=== PATIENT | female | born 1970 | race Caucasian/White ===

== ENCOUNTER 2017-06-10 09:00 | Outpatient (CLI) | payer MEDICAID | END 2017-06-10 23:59 | disposition home or self-care (01) | LOC: D.MAMMO 09:00 | DX: Z12.31 Encounter for screening mammogram for malignant neoplasm of breast (principal) ==

== ENCOUNTER 2018-03-24 16:35 | Emergency (ER) | payer MEDICAID ==
[~2018-03-24] VITALS: Ht 175.3 cm; Wt 72.7 kg
[2018-03-24 17:13] VITALS: BP 135/92; Ht 175.3 cm; Wt 72.7 kg
[2018-03-24] MEDS ORDERED: KLONOPIN1 MG PO (17:15)
[2018-03-24] MEDS ORDERED: TOPAMAX50 MG PO (17:18)
[2018-03-24] MEDS ORDERED: BACLOFEN10 MG PO (17:19)
[2018-03-24 22:31] LABS: BASOPHILS 0.5 % (0-2); EOSINOPHILS 2.2 % (0-7); HEMATOCRIT 37.1 % (36.0-48.0); HEMOGLOBIN 12.8 g/dL (12-16); IMMATURE GRANULOCYTES 0.1 % (0-5); LYMPHOCYTES 42.3 % (15-50); MCH 30.4 pg (26.0-34.0); MCHC 34.5 g/dL (31.0-37.0); MCV 88.1 fL (80.0-100.0); MEAN PLATELET VOLUME 10.3 fL (7.4-10.4); MONOCYTES 7.1 % (2-11); NEUTROPHILS 47.8 % (40-80); PLATELET COUNT 337 10x3/uL (130-400); RBC 4.21 10x6/uL (4.00-5.40); RDW 13.6 % (11.5-14.5); WBC 7.4 10x3/uL (4.8-10.8)
[2018-03-24 22:45] LABS: ALBUMIN 4.2 g/dL (3.4-5.0); ANION GAP 16.3 mmol/L (8-16); BILIRUBIN - TOTAL 0.25 mg/dL (0.2-1.3); CALCIUM 8.7 mg/dL (8.5-10.1); CARBON DIOXIDE 21.4 mmol/L (21.0-32.0); POTASSIUM - SERUM 4.7 mmol/L (3.5-5.1); PROTEIN - SERUM 7.4 g/dL (6.4-8.2)
== END 2018-03-24 23:20 | disposition home or self-care (01) ==
LOC: D.ER 16:35
PROVIDERS: Emergency Medicine
DX: R25.1 Tremor, unspecified (principal); F17.200 Nicotine dependence, unspecified, uncomplicated

== ENCOUNTER 2020-09-22 07:04 | Day surgery (SDC) | payer OTHER ==
[~2020-09-22] VITALS: Ht 175.3 cm; Wt 90.9 kg
--- NOTE | ~2020-09-22 | OP ---
PATIENT NAME: CHASTITY HARPER MEDICAL RECORD: [id number] :72 LOCATION:[facility] ADMISSION DATE: SURGEON: SEBASTIAN CUMMINGS MD DATE OF OPERATION: 09/22/2020 PREOPERATIVE DIAGNOSIS: Right-sided chronic sinusitis. POSTOPERATIVE DIAGNOSIS: Right-sided chronic sinusitis. PROCEDURES: Right middle meatal antrostomy, right ethmoidectomy, right frontal sinusotomy. SURGEON: Sebastian Cummings MD ANESTHESIA: General orotracheal. BLOOD LOSS: Less than 5 mL. SPECIMENS: Cultures from the right maxillary sinus and tissue, inflamed polypoid tissue from the right middle meatus for path. PACKING: None. COMPLICATIONS: None. DISPOSITION: Recovery, stable. DESCRIPTION OF PROCEDURE: She was brought to the operating room and placed in supine position, sedated and intubated by anesthesia. The table was turned 90 degrees. Head drape was applied. She was positioned for sinus surgery. Using a headlight and a nasal speculum, the floor of the nose, inferior turbinate, lateral nasal wall and middle turbinate on the right side were injected with 1 mL of 1% lidocaine with 1:100,000 epinephrine with a 1-1/2 inch 27-gauge needle. Then, three Afrin pledgets were placed in the right side superiorly, middle meatus and along the inferior turbinate and two were placed on the left side. She was positioned, prepped and draped in the usual fashion for sinus surgery. Then, all Afrin pledgets were removed from both sides of the nose. Left side was examined using 0-degree telescope. Inferior turbinate was normal. Middle meatus was normal. Nasal vaults was normal and the nasopharynx was normal, a little bit of septal deviation. Right side was then examined. Inferior turbinate was normal, slightly inflamed. There was purulence bubbling out of the entire middle meatus. The nasal vault looked normal. The nasopharynx was normal. No masses or polyps. The inferior turbinate was outfractured slightly for better visualization. Copious purulence was expressed from that middle meatus. The middle turbinate was medialized with the [place]. The uncinate and some inflammatory polypoid tissue and the middle turbinate were injected with another 0.5 mL of 1% lidocaine with 1:100,000 epinephrine. The curved olive tip suction was placed in the maxillary sinus with a Luki trap evacuated mostly purulence, a little bit of blood from the maxillary sinus. This was sent for cultures. A small pediatric forceps was used to remove several pieces of this inflammatory polypoid tissue from the middle meatus and a microdebrider was inserted and was used to take down all this polypoid tissue, exposing the maxillary ostia better and entering the inferior medial ethmoid bulla and taken down ethmoid cavities from anterior to posterior and evacuating the purulence there until I got back to clean ethmoid sinus. Really not much bleeding there OPERATIVE REPORT [id number] CHASTITY HARPER than a long thin curved olive tip suction was inserted up into the frontal duct really easily. Again, evacuated some purulence and this was repeatedly irrigated with a 60 mL syringe with saline rinsing it out that sinus. That was then suctioned out and then maxillary sinus was done the same way and the microdebrider was used to clean up the edges of that middle meatus. Had a nice smooth round opening into that maxillary sinus, large curved olive-tipped suction was used to evacuate it after being irrigated repeatedly. The ethmoids were cleaned. Afrin pledget was placed in the ethmoid cavity. I waited a few minutes for any bleeding to stop and remove that. I examined the nasal cavity and nasopharynx, the ethmoid cavity and that maxillary ostia. Everything was really clean, put some mupirocin ointment in there and suctioned the nasopharynx, made sure the pharynx was clear and eyes were examined and normal. She was awakened, extubated, and transported to recovery in good condition. No complications. TRANSINT:[id number] Voice Confirmation ID: [id number] DOCUMENT ID: [id number] SEBASTIAN CUMMINGS MD CC: [id number] DICTATION DATE: 09/22/20 1039 ETL PROGRAMMER: 09/22/20 1347 [facility] [place] 09/22/20 [facility] [address] [place] [id number]
[~2020-09-22 07:04] MED LIST: BACLOFEN10 MG PO; ERGOCALCIF50000 UNIT PO; KLONOPIN1 MG PO; NORVASC5 MG PO; REMERON15 MG PO; TOPAMAX50 MG PO
[2020-09-22 07:42] LABS: CALC OSMOLALITY 272 mosm/kg (275-300); CALCIUM 8.5 mg/dL (8.5-10.1); CARBON DIOXIDE 24.7 mmol/L (21.0-32.0); CHLORIDE - SERUM 105 mmol/L (98-107); CREATININE - SERUM 0.8 mg/dL (0.6-1.3); GLUCOSE 100 mg/dL (74-106); POTASSIUM - SERUM 3.7 mmol/L (3.5-5.1); SODIUM 136 mmol/L (136-145); UREA NITROGEN 16 mg/dL (7-18); eGFR NON AFRICAN AMERICAN 81 mL/min (90-120)
[2020-09-22 07:49] LABS: BASOPHILS 0.2 % (0-2); EOSINOPHILS 1.2 % (0-7); HEMATOCRIT 37.9 % (36.0-48.0); HEMOGLOBIN 12.8 g/dL (12-16); IMMATURE GRANULOCYTES 0.2 % (0-5); LYMPHOCYTES 18.1 % (15-50); MCH 28.8 pg (26.0-34.0); MCHC 33.8 g/dL (31.0-37.0); MCV 85.2 fL (80.0-100.0); MEAN PLATELET VOLUME 10.1 fL (7.4-10.4); MONOCYTES 7.4 % (2-11); NEUTROPHIL ABS# 7.64 10x3/uL (1.56-6.13); NEUTROPHILS 72.9 % (40-80); PLATELET COUNT 373 10x3/uL (130-400); RBC 4.45 10x6/uL (4.00-5.40); WBC 10.5 10x3/uL (4.8-10.8)
[2020-09-22 08:25] VITALS: BP 146/97; Ht 175.3 cm; Wt 90.9 kg
--- NOTE | 2020-09-22 09:44 | HP ---
PATIENT: CHASTITY HARPER MEDICAL RECORD: [id number] ACCOUNT: [id number] LOCATION:[facility] : 72 ADMISSION DATE: 09/22/20 PCP: FADIA COSTA DO HISTORY AND PHYSICAL EXAMINATION HISTORY OF PRESENT ILLNESS: Chastity is 50. She has been having severe right-sided sinusitis symptoms for about 6 months, been treated repeatedly. She has been admitted for sinus surgery. PAST MEDICAL HISTORY: Includes hypertension, melanoma. PAST SURGICAL HISTORY: Includes appendectomy, hysterectomy, bilateral rotator cuff surgery. SOCIAL HISTORY: She is a smoker. CURRENT MEDICATIONS: Include Norvasc, Requip, baclofen. ALLERGIES: No known drug allergies. PHYSICAL EXAMINATION: GENERAL: She is healthy appearing. FACE: Normal, symmetric. EYES: Sclerae and conjunctivae are normal. EARS: Canals and TMs are normal. NOSE: She has got purulent drainage on the right side. No visible masses or polyps. ORAL CAVITY AND OROPHARYNX: Tongue protrudes in midline. Pharynx is normal. NECK: She has left-sided goiter or nodule. CHEST: Clear. CARDIOVASCULAR: Regular rate and rhythm, no murmur. EXTREMITIES: Normal. DIAGNOSTIC DATA: CT, she has complete opacification of the right maxillary, right ethmoid and right frontal sinuses, suspicion of a tooth root that is the source of the problem. IMPRESSION: Severe right-sided sinusitis, refractory to medical management. PLAN: Right middle meatal antrostomy, right ethmoidectomy, right frontal sinusotomy. TRANSINT:[id number] Voice Confirmation ID: [id number] DOCUMENT ID: [id number] ROBBIE GRANT MD at 0944 CC: [id number] DICTATION DATE: 09/19/20 0854 MANAGER ENVIRONMENTAL: 09/19/20 1249 [facility] [address] [place] [address]
[2020-09-23 16:09] LABS: ACID FAST SMEAR Negative (()); AFB SPECIMEN PROCESSING Concentration (())
[2020-09-24 11:11] LABS: FUNGUS STAIN Final report (())
== END 2020-09-22 12:30 | disposition home or self-care (01) ==
LOC: D.OPS 07:04
PROVIDERS: Anesthesiology; ATTEND Otolaryngology
DX: J32.9 Chronic sinusitis, unspecified (principal); I10 Essential (primary) hypertension; C43.9 Malignant melanoma of skin, unspecified